=== PATIENT | male | born 1990 | race Caucasian/White ===

== ENCOUNTER 2018-04-17 15:44 | Emergency (ER) | payer SELFPAY ==
--- NOTE | 2018-04-17 16:17 | EDPHY ---
H & P Stated Complaint: groin pain Time Seen by Provider: 04/17/18 15:56 HPI/ROS: This patient complains of 1 month history of intermittent right groin and testicle pain. He states that he notices a day after cleaning out his garage. It was initially intermittent and occasional but over the past 2 weeks has become more frequent. He states that now most of the time for the past week or so he has a true 3/10 ache to the right groin and epididymal region and at times becomes more sharp in nature up to 8/10 intensity with no clear exacerbating factors. No significant change in the pain with Valsalva maneuvers. No other exacerbating factors noted. He has not taken any medication for the pain today. He came in by private vehicle for further evaluation. ROS: Constitutional: No fevers or chills. HEENT: No complaints line pulmonary: No complaints new line cardiovascular: No complaints new line GI: No upper abdominal pain. He feels the pain radiates to the right groin/lower quadrant. Normal bowel movements. No nausea vomiting. : No hematuria. No dysuria. No recent groin trauma. No urethral discharge. No genital lesions appreciated Musculoskeletal: No complaints integumentary: No skin rash Neuro: No complaints 10 point review of symptoms is performed and otherwise negative with exception of pertinent positives and negatives listed in HPI and ROS Source: Patient Exam Limitations: No limitations - Personal History Current Tetanus/Diphtheria Vaccine: Yes Current Tetanus Diphtheria and Acellular Pertussis (TDAP): Yes - Medical/Surgical History PMH: Otherwise healthy Tall stature-6 ft 8 Hx Asthma: No Hx Chronic Respiratory Disease: No Hx Diabetes: No Hx Cardiac Disease: No Hx Renal Disease: No Hx Cirrhosis: No Hx Alcoholism: No Hx HIV/AIDS: No Hx Splenectomy or Spleen Trauma: No Other PMH: Boxer fracture right hand 2017 - Social History Smoking Status: Never smoked Alcohol Use: Occasionally Drug Use: None Additional Social History: 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 - Physical Exam Exam: General Appearance: Alert, no distress. Eyes: Pupils equal and round no pallor or injection. ENT, Mouth: Mucous membranes moist. Respiratory: There are no retractions, lungs are clear to auscultation. Cardiovascular: Regular rate and rhythm. Gastrointestinal: Normoactive, soft, nontender : Circumcised penis with no urethral discharge or lesions. He has a high- riding right testicle with mild tenderness. He has associated epididymal tenderness. No evidence of inguinal hernia on exam. No skin lesions. Neurological: GCS 15 Skin: Warm and dry, no rashes. Musculoskeletal: Neck is supple nontender. Extremities are symmetrical, full range of motion. Psychiatric: Mood and affect normal DIFFERENTIAL DIAGNOSIS: After history and physical exam differential diagnosis was considered for epididymal head cyst, epididymitis, spermatocele, testicular torsion, inguinal hernia, STD, UTI Constitutional: Initial Vital Signs Temperature (C) 37.4 C 04/17/18 15:51 Heart Rate 89 04/17/18 15:51 Respiratory Rate 18 04/17/18 15:51 Blood Pressure 161/94 H 04/17/18 15:51 O2 Sat (%) 96 04/17/18 15:51 O2 Delivery Mode Room Air Allergies/Adverse Reactions: No Known Allergies Allergy (Unverified 04/17/18 15:56) Home Medications: Medication Instructions Recorded Doxycycline Hyclate [Vibramycin 100 mg PO BID #20 cap 04/17/18 100 MG (*)] Medical Decision Making - Diagnostics Imaging Results: Imaging Impressions Testicular Ultrasound 04/17/18 16:07 Impression: 1. No evidence of testicle torsion or mass. 2. Moderate bilateral varicoceles. 3. Mild thickening of the right epididymis. Results called to Dr. Real Alexander at 4:45 PM. Imaging: Discussed imaging studies w/ call center supervisor Radiologist ED Course/Re-evaluation: Course: Rocephin 250 mg IM after splints with some urine and urine dip obtained Discussion: Patient with findings consistent with epididymitis on exam and by ultrasound that I think is causing his symptoms of epididymal/testicular discomfort. I counseled regarding this. He has no significant risk factors for STD but given his age will cover for this with genprobe chlamydia and GC pending he does not have findings that would suggest sepsis or other red flag findings. However, he understands need to return emergency department should he develop any significant worsening of symptoms despite the treatment plan - Data Points Laboratory Results: His POC urine dip is normal Medications Given: Discontinued Medications Ceftriaxone Sodium (Rocephin 250mg Vial) 250 mg IM EDNOW ONE PRN Reason: Protocol Stop: 09/14/18 16:56 Last Admin: 04/17/18 17:03 Dose: 250 mg Point of Care Test Results: Urine Dip Collection Date 04/17/18 Collection Time 16:45 Specific [place] (1.002-1.030) 1.030 PH (5.0-7.5) 7.0 Leukocytes (Negative) Negative Nitrites (Negative) Negative Protein (Negative) Negative Glucose (Negative) Negative Ketones (Negative) Negative Urobilnogen (0.2-1.0 EU) 0.2 Bilirubin (Negative) Negative Blood (Negative) Negative Departure - Departure Disposition: Home, Routine, Self-Care Clinical Impression: Acute epididymitis Condition: Good Instructions: Epididymitis (ED) Additional Instructions: Diagnosis: Epididymitis Plan: Doxycycline antibiotic Wear sunscreen while notices that will make him more prone to sunburn Take a probiotic and/or yogurt while taking this antibiotic to avoid loose stools from the antibiotic Ibuprofen Tylenol for discomfort as needed Follow up with primary care physician for any ongoing symptoms despite treatment plan Return for any significant worsening despite treatment plan Referrals: NONE *PRIMARY CARE P,. [Primary Care Provider] - As per Instructions Tanvi Lui MD [Medical Doctor] - As per Instructions Prescriptions: Doxycycline Hyclate [Vibramycin 100 MG (*)] 100 mg PO BID #20 cap
[2018-04-17] MEDS ORDERED: cefTRIAXone 250 MG VIAL IM ONE (16:55)
[2018-04-17 17:15] VITALS: BP 141/78
[2018-04-20 11:49] LABS: GC AMPLIFICATION GENPROBE NEGATIVE (NEGATIVE)
== END 2018-04-17 17:12 | disposition home or self-care (01) ==
LOC: CED 15:44
DX: N45.1 Epididymitis (principal)
CPT/HCPCS: 76870-PO; J0696